=== PATIENT | female | born 1950 | race Caucasian/White ===

== ENCOUNTER 2019-03-04 06:06 | Inpatient (IN) | payer MEDICARE, OTHER ==
[2019-03-01 09:07] VITALS: BMI 36.8
[2019-03-04] MEDS ORDERED: Sodium Chloride 0.9% 10 ML ONE (06:38)
[2019-03-04] MEDS ORDERED: Fentanyl 100 MCG/2 ML VIAL ONE ×4 (07:08→09:38)
[2019-03-04] MEDS ORDERED: Midazolam HCl 2 mg/2 ml Vial ONE (07:08)
[2019-03-04] MEDS ORDERED: Famotidine/PF 20 mg/2ml Vial ONE (07:09)
[2019-03-04 07:14] LABS: #Basophils 0.1 thou/uL (0.0-0.2); #Eosinphils 0.1 thou/uL (0.0-0.7); #Lymphocytes 2.8 thou/uL (1.20-3.40); #Monocytes 0.6 thou/uL (0.11-0.59); #Neutrophils 3.8 thou/uL (1.40-6.50); %Eosinophils 1.7 % (0.0-10.0); %Lymphocytes 37.3 % (21.0-51.0); %Monocytes 8.5 % (0.0-10.0); %Neutrophils 51.4 % (42.0-75.0); Hemoglobin 12.3 g/dL (12.0-16.0); Mean Corpuscular HGB CONC 34.3 g/dL (32.0-36.0); Mean Corpuscular Hemoglobin 35.2 pg (27.0-31.0); Mean Platelet Volume 8.3 fL (7.4-10.4); Platelet Count 231 thou/uL (130-400); RBC Distribution Width 12.1 % (11.5-14.5); White Blood Cell (WBC) Count 7.4 thou/uL (4.8-10.8)
[2019-03-04 07:28] LABS: Anion Gap 15 mmol/L (10-20); BUN (Urea Nitrogen) 14 mg/dL (9.8-20.1); Calc. Creatinine Clearance 76 mL/min (70-130); Calcium 9.2 mg/dL (7.8-10.44); Carbon Dioxide 22 mmol/L (23-31); Chloride 105 mmol/L (98-107); Estimated GFR-MDRD 55; Glucose 117 mg/dL (80-115); Sodium 137 mmol/L (136-145)
[2019-03-04] MEDS ORDERED: traMADol HCl 50 MG TAB PO PRN (10:34)
[2019-03-04] MEDS ORDERED: Milk Of Magnesia 30 ML UDCUP PO PRN (10:34)
[2019-03-04] MEDS ORDERED: diphenhydrAMINE 25 MG CAP PO PRN (10:34)
[2019-03-04] MEDS ORDERED: HYDROcodone/Acetaminophen 10/325 mg Tablet PO PRN ×2 (10:34)
[2019-03-04] MEDS ORDERED: Promethazine 25 MG TAB PO PRN (10:34)
[2019-03-04] MEDS ORDERED: diphenhydrAMINE 50 MG/ML VIAL IVP PRN (10:34)
[2019-03-04] MEDS ORDERED: Promethazine HCl 12.5 MG SUPP PR PRN (10:34)
[2019-03-04] MEDS ORDERED: Ondansetron PF 4 MG/2 ML Vial IM PRN (10:34)
[2019-03-04] MEDS ORDERED: Promethazine HCl 25 MG/ML VIAL IM PRN (10:34)
[2019-03-04] MEDS ORDERED: Mag-Al 1200 mg/1200 mg/30 ML UDCUP PO PRN (10:34)
[2019-03-04] MEDS ORDERED: Morphine 4 MG/ML VIAL SLOW IVP PRN (10:34)
[2019-03-04] MEDS ORDERED: Ondansetron PF 4 MG/2 ML Vial ONE (11:19)
[2019-03-04] MEDS ORDERED: ePHEDrine 50 MG/ML VIAL ONE (11:19)
[2019-03-04] MEDS ORDERED: Lidocaine 1% PF 5 ML VIAL ONE (11:19)
[2019-03-04] MEDS ORDERED: Glycopyrrolate 0.2 MG/ML 5 ML SYRINGE ONE (11:19)
[2019-03-04] MEDS ORDERED: Succinylcholine Chloride 20 MG/ML 10 ml SYRINGE FS ONE (11:19)
[2019-03-04] MEDS ORDERED: Dexamethasone 20 MG/5 ML VIAL ONE (11:19)
[2019-03-04] MEDS ORDERED: PROPOFOL 200 MG/20 ML VIAL ONE (11:19)
[2019-03-04] MEDS ORDERED: PHENYLEPHRINE-NS 100 MCG/ML 10 ML SYRINGE ONE (11:19)
[2019-03-04] MEDS ORDERED: Rocuronium Bromide 10 MG/ML (10ML VIAL) ONE (11:19)
[2019-03-04] MEDS: Sodium Chloride 0.9% 1,000 ML IV SCH ×2 (11:21→22:29)
--- NOTE | 2019-03-04 13:25 | OP ---
DATE OF PROCEDURE: 03/04/2019 SKIVER WELT END: Stanley Rao PA-C PROCEDURE PERFORMED: Right L4-L5 laminectomy, facetectomy, foraminotomy, diskectomy, interbody arthrodesis, posterolateral arthrodesis, pedicle screw instrumentation, right L4-L5, demineralized bone matrix, local morselized autograft. DESCRIPTION OF PROCEDURE: The patient was brought into the operating room and intubated. She was rolled in a prone position on gel-filled chest rolls. An incision was made exposing L4 and L5 bilaterally and the level was confirmed by x-ray. 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 After completely decompressing this region, we did identify the right L4 nerve root spanning directly across the L4-L5 disk space without sufficient room to adequately place an intervertebral device. We did, however, perform diskectomy and placed some bone graft in the disk space. We did not, however, place an intervertebral device. After complete decompression was secured, we placed pedicle screws at right L4 and right L5 using lateral fluoroscopic guidance and the position was confirmed by x-ray. Larry was secured between the screws, connected by nuts, which were final tightened. The wound was then extensively irrigated and MAC hemostasis was secured. A combination of demineralized bone matrix and local morselized autograft was laid over the left lamina and posterolateral surfaces for the purpose of arthrodesis. Vancomycin powder was applied and the wound was then closed in anatomic layers. Job ID: [id number]
[2019-03-04] MEDS: traMADol HCl 50 MG TAB PO PRN ×2 (13:50→21:20)
[2019-03-04] MEDS: CEFAZOLIN 2 GM in Premix Bag 1 BAG IVPB SCH ×2 (13:51→21:20)
[2019-03-04] MEDS: tiZANidine HCl 4 MG TAB PO PRN ×2 (14:37→22:29)
[2019-03-04] MEDS ORDERED: FLUoxetine HCl 20 MG CAP PO SCH (21:00)
[2019-03-04] MEDS ORDERED: Cholestyramine/Aspartame 4 gm Packet PO SCH (21:00)
[2019-03-04] MEDS ORDERED: Pravastatin Sodium 20 MG TAB PO SCH (21:00)
[2019-03-04] MEDS: Sulfameth/Trimethoprim DS 800-160mg TAB PO SCH (21:17)
[2019-03-04] MEDS: Oxybutynin ER 5 MG TAB PO SCH (21:17)
[2019-03-05 07:42] VITALS: BP 101/48; TEMP 98.2
[2019-03-05] MEDS: Oxybutynin ER 5 MG TAB PO SCH (08:40)
[2019-03-05] MEDS: Sulfameth/Trimethoprim DS 800-160mg TAB PO SCH (08:43)
[2019-03-05] MEDS ORDERED: Magnesium Oxide 400 MG TAB PO SCH (09:00)
[2019-03-05] MEDS ORDERED: Fish Oil 1,000 MG CAP PO SCH (09:00)
[2019-03-05] MEDS ORDERED: Calcium Carbonate 600 MG TAB PO SCH (09:00)
[2019-03-05] MEDS ORDERED: TURMERIC 500 MG PO SCH (09:00)
[2019-03-05] MEDS ORDERED: Cyanocobalamin (Vitamin B-12) 1,000 MCG TAB PO SCH (09:00)
[2019-03-05] MEDS ORDERED: Estradiol 1 MG TAB PO SCH (09:00)
[2019-03-05] MEDS ORDERED: Prevnar 13-Val Conj/PF 0.5 ML SYRINGE IM ONE (11:30)
--- NOTE | 2019-03-05 13:49 | DIS ---
DATE OF ADMISSION: 03/04/2019 DATE OF DISCHARGE: 03/05/2019 HISTORY OF PRESENT ILLNESS: The patient is a 68-year-old female, status post L4-L5 decompression and fusion. Following the surgery, she was transitioned to the Med/Surg floor, where her pain has been well-controlled with p.o. medications, she is tolerating regular diet, and she is voiding appropriately. The patient has been ambulating easily throughout the department. PHYSICAL EXAMINATION: This morning, she is awake, alert, in no acute distress. She has free active range of motion of all extremities. No focal motor weakness or reflex asymmetry. Her incision is clean, dry, and intact. PLAN: We will plan to dismiss the patient home. I have discussed home care precautions. We will follow up with the patient in 2 weeks. Job ID: [id number]
== END 2019-03-05 11:28 | disposition home or self-care (01) | DRG 460 ==
LOC: SURG A 06:06 → EDSTATUS 14:16
PROVIDERS: ADMIT Neurological Surgery; ATTEND Neurological Surgery
PROC: 0SG00AJ Fusion of Lumbar Vertebral Joint with Interbody Fusion Device, Posterior Approach, Anterior Column, Open Approach (ICD-10-PCS; principal; 2019-03-04)
PROC: 0SB20ZZ Excision of Lumbar Vertebral Disc, Open Approach (ICD-10-PCS; 2019-03-04)
DX: M43.16 Spondylolisthesis, lumbar region (principal); E78.5 Hyperlipidemia, unspecified; E66.9 Obesity, unspecified; F41.9 Anxiety disorder, unspecified; F32.9 Major depressive disorder, single episode, unspecified; Z90.710 Acquired absence of both cervix and uterus; Z87.891 Personal history of nicotine dependence; Z88.5 Allergy status to narcotic agent; Z88.1 Allergy status to other antibiotic agents; Z87.440 Personal history of urinary (tract) infections; Z68.36 Body mass index [BMI] 36.0-36.9, adult
CPT/HCPCS: 76000; 80048; 85025; 93005; 93010; C1713; C1768; J0131; J0690; J1100; J2001; J2250; J2270; J2405; J2704; J3010; J3370; J3490; S0028